=== PATIENT | female | born 1930 | race Caucasian/White ===

== ENCOUNTER 2016-09-10 12:10 | Inpatient (IN) | payer MEDICARE, OTHER ==
[~2016-09-10] VITALS: Ht 152.4 cm; Wt 64.6 kg
[~2016-09-10 12:10] MED LIST: ASPI-973 PO; LISI2.5T PO; LVF250T PO; METO25TA6 PO; PANT40TA3 PO
--- NOTE | 2016-09-10 12:10 | ED.REPORT ---
HPI-Neurologic Deficit Date of Service Sep 10, 2016 ED Provider: Rajan Virgen DO Pt is an 86 y/o female w/ a hx of HTN, [place], presenting to the ED with family via EMS due to worsening stroke-like symptoms onset 1000 today. She is not anticoagulated, she has no history of stroke. She began to notice At 1000 today , she noticed some right eye vision loss and took a nap. She woke up at 1130 and experienced a sudden-onset headache which progressed into right sided weakness and numbness causing her to fall to the ground from her chair, change in mental status. She c/o associated right eye vision loss. EMS denies aphasia, slurred speech, facial droop, any obvious pain, . Systolic BP on route 177. Daughter reports patient is normally more alert and oriented than at time of interview. She was noted to be having trouble breathing last night by her brother. She has not been taking her medications regularly which her PCP knows about. She was diagnosed with pneumonia a few months ago and placed on Cipro. She has been experiencing a cough for 1 wk. Further history unobtainable due to somnolence. Nursing Notes Stated Complaint: STROKE Nursing Notes Reviewed: Yes Allergies: Coded Allergies: No Known Allergies (Unverified Allergy, Unknown, 02/08/15) No Known Drug Allergies (Verified Allergy, Unknown, 05/06/16) Scheduled Aspirin (Aspirin) 81 Mg Tablet 81 MG PO DAILY Levofloxacin (Levaquin) 250 Mg Tablet 250 MG PO DAILYAC Lisinopril (Lisinopril) 2.5 Mg Tablet 2.5 MG PO DAILY Metoprolol Tartrate (Metoprolol Tartrate) 25 Mg Tablet 12.5 MG PO BID Scheduled PRN Pantoprazole DR (Pantoprazole DR) 40 Mg Tablet.dr 40 MG PO DAILYAC PRN PRN For Dyspepsia or Heartburn General Time Seen by Provider: 12:16 Chief Complaint Other (Right sided weakness) Hx Obtained From: Patient, Daughter, EMS Arrived By: Ambulance Sudden in Onset?: Yes Onset Occurred: 1 - 4 hours ago Symptom Duration: Since onset Progression Since Onset: Gradually worsening Severity: Current: No pain currently Severity: Maximum: No pain Similar Sx Previous: No Risk Factors TPA Administration/Criteria Stroke Thrombolytic Therapy : TPA Considered: Yes Neurologist Contacted: Yes Disc Risk/Benefit/Alternatives: Yes Consent Obtained: Guardian (daughter, PoAnette) Intensive Monitoring Performed: Yes TPA Administered Intravenously: Yes (Bolus at 1253) Complications Encountered: No Inclusion Criteria: Measurable neuro deficit, Onset < 3hr before Tx, 18 years or older NIH Stroke Scale Level of Consciousness: Not alert, arousable (1) Ask Month & Age: Both questions right (0) Open/Close Eyes/Hand Patient Portal Concierge: Performs both tasks (0) Horizontal EO Movements: None (0) 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) Facial Palsy: Normal symmetry (0) Right Arm Motor Drift (10s): No drift 10 sec (0) Left Arm Motor Drift (10s): Drift, not touch bed (1) Right Leg Motor Drift (5s): No drift 5 sec (0) Left Leg Motor Drift (5s): Drift, hits bed (2) Limb Ataxia FNF/Heel-Bedoya: Untestable (0) Sensation (Arms/Legs/Face): No sensory loss (0) Language Aphasia: Loss fluency ID matls (1) Dysarthria: Slurring intelligible (1) Extinction/Inattention: No exctinct/inattent (0) NIHSS Score: 9 Time NIHSS Performed: 12:25 Date NIHSS Performed: Sep 10, 2016 Past Medical History Past Medical History very hard of hearing arthritis CAD HTN Past Surgical History mastoid, ear surgeries cardiac stent Reports: Appendectomy, Cataract surgery, Tonsillectomy Smoking History Never Smoker Social History Alcohol Use: 1-3 per week Drug Use: Denies drug use Other Social History: Occupation livese with Ambulatory Status Walker Review of Systems Eyes: Reports: Visual loss right Respiratory: Reports: Non-productive cough Neurologic: Reports: Confusion, Focal weakness, Headache, Numbness, Problem walking, Vision change, Denies: Slurred speech, Unable to speak Complete sys rev & neg: except as marked. Physical Exam Initial Vital Signs Vital Signs (First) Date Time Temp Pulse Resp B/P Pulse Ox O2 Delivery O2 Flow Rate FiO2 09/10/16 13:09 36.0 65 16 173/94 99 Room Air 09/10/16 14:26 2 Initial VS: Reviewed, Vital signs abnormal ENT: Mucous membranes moist, Conjunctiva normal, No scleral icterus Neck: Supple, Non-tender, Full range of motion Abdomen / GI: Soft, Non-tender Extremities: Vascular intact Skin: Warm, Dry, No cyanosis General/Constitutional: Awake Alertness: Positive: Confused Hypertensive Somnolent Head / Eyes: Atraumatic, Normocephalic, PERRL Unable to differentiate light or dark in the right eye Respiratory / Chest: Atraumatic, Breath sounds NL, Breath sounds = bilat, No respiratory distress, No rales, No rhonchi, No wheezing, No retractions, No stridor, No chest tenderness, No chest wall deformity, No crepitus Cardiovascular: Heart rate NL, Regular rhythm, Heart sounds NL, No gallop, No murmurs, No rubs, Cap refill not delayed, Peripheral circulation NL Neurologic: Oriented X3 See NIH stroke scale = 9. Interpretation & Diagnostics Interpretation & Diagnostics: Head and neck CTA with brain perfusion (Post TPA): FINDINGS: Image quality: Excellent. The ventricular system and cortical sulci demonstrate atrophy, consistent for the patient's stated age. There are areas of hypoattenuation within the periventricular and subcortical white matter. There is no acute intra-or extra axial fluid collection. No acute hemorrhage, mass lesion or midline shift. Brainstem is unremarkable. Globes are symmetrical. Sinuses demonstrate overall mild pansinus mucosal thickening however more prominent in the left ethmoid air cells. Osseous structures are intact. Scattered foci of air are present within the right álvaro-orbital fat, extending posteriorly along the expected course of the supraclinoid ICA and cavernous sinus. The posterior circulation demonstrates a left vertebral artery dominance. Basilar artery and posterior cerebral arteries demonstrate no areas of hemodynamically significant stenosis, vascular occlusion or aneurysmal dilation. Posterior communicating arteries are within normal limits. The left anterior circulation, including the anterior and middle cerebral arteries, as well as internal carotid arteries demonstrates no areas of hemodynamically significant stenosis, vascular occlusion or aneurysmal dilation. The right internal carotid artery demonstrates occlusion throughout the Paul portions as well as extending into the supraclinoid region. There is complete occlusion of the right middle cerebral artery with only minimal distal atretic flow. The origins of the left common, internal and external carotid arteries demonstrate no areas of hemodynamically significant stenosis, vascular occlusion or aneurysmal dilation. There is minimal appearance of opacification in the very proximal portion of the left common carotid artery. There is no visualized opacification within the internal or external carotid artery on the right within the neck or head. Origins of the left and right vertebral arteries demonstrate no areas of hemodynamically significant stenosis, vascular occlusion or aneurysmal dilation. Aortic arch demonstrates bovine anatomy, consistent with congenital variation. Limited, visualized portions subclavian vasculature are unremarkable. IMPRESSION: 1. No acute intracranial process. 2. Moderate atrophy and chronic microvascular ischemic changes. 3. 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 In addition, there is only faint opacification of the most proximal portion of the right common carotid artery, suggesting mid/distal common carotid artery occlusion. 4. Scattered foci of air are present within the right periorbital fat and extending one portions of the supraclinoid ICA and cavernous sinus. This could be secondary to injection timing. Dictated by: Jyoti Nolan M.D. on 09/10/2016 at 14:29 Approved by: Jyoti Nolan M.D. on 09/10/2016 at 14:29 Lab Results Interpretation Result Diagram: 09/10/16 1226 09/10/16 1226 Test 09/10/16 12:26 09/10/16 12:52 White Blood Count 10.0th/mm3 (3.8-10.1) Red Blood Count 4.23mil/mm3 (3.90-5.20) Hemoglobin 12.3g/dL (12.0-15.6) Hematocrit 36.5% (35.0-46.0) Mean Corpuscular Volume 86.3fL (81-100) Mean Corpuscular Hemoglobin 29.1pg (27.0-35.0) Mean Corpuscular Hemoglobin Concent 33.7% (32.0-37.0) Red Cell Distribution Width 13.0% (12.3-15.4) Platelet Count 213bil/L (150-400) Neutrophils (%) (Auto) 77.7% (40-74) Lymphocytes (%) (Auto) 13.6% (14-46) Monocytes (%) (Auto) 6.9% (4-12) Eosinophils (%) (Auto) 1.5% (0-5) Basophils (%) (Auto) 0.1% (0-3) Prothrombin Time 10.2sec (8.1-12.5) Prothromb Time International Ratio 0.95ratio Activated Partial Thromboplast Time 26.3sec (22.8-33.0) Sodium Level 135mEq/L (134-144) Potassium Level 4.3mEq/L (3.5-5.2) Chloride Level 102mEq/L (97-108) Carbon Dioxide Level 19mmol/L (18-29) Blood Urea Nitrogen 13mg/dL (8-27) Creatinine 0.82mg/dL (0.57-1.00) Estimat Glomerular Filtration Rate 95mL/min (>59) Glucose Level 117mg/dL (60-99) Calcium Level 9.0mg/dL (8.5-10.1) Total Bilirubin 0.6mg/dL (0.0-1.2) Aspartate Amino Transf (AST/SGOT) 49U/L (0-50) Alanine Aminotransferase (ALT/SGPT) 40U/L (0-32) Alkaline Phosphatase 61U/L (25-165) Troponin T < 0.010ug/L (0.0-0.011) Total Protein 6.7g/dL (6.4-8.4) Albumin 3.6g/dL (3.4-5.0) Urine Color Straw (YELLOW) Urine Appearance Hazy (CLEAR,HAZY) Urine pH 7.5 (5.0-8.0) Urine Specific [place] 1.015 (1.003-1.035) Urine Protein Negativemg/dL (NEG,TRACE) Urine Glucose (UA) Negativemg/dL (NEGATIVE) Urine Ketones Negativemg/dL (NEGATIVE) Urine Occult Blood Negative (NEGATIVE) Urine Nitrite Negative (NEGATIVE) Urine Bilirubin Negative (NEGATIVE) Urine Urobilinogen Normalmg/dL (NORMAL) Urine Leukocyte Esterase Negative (NEGATIVE) Urine RBC 0-2/hpf (0-2) Urine WBC 0-5/hpf (0-5) Urine Epithelial Cells Occasional/hpf (NONE-MOD) Urine Crystals None seen (NONE SEEN) Urine Bacteria None/hpf (NONE-FEW) Urine Hyaline Casts None/lpf (NONE) Urine Granular Casts None seen (NONE SEEN) Urine Waxy Casts None seen (NONE SEEN) Urine Red Blood Cell Casts None seen (NONE SEEN) Urine White Blood Cell Casts None seen (NONE SEEN) Urine Mucus None seen (None Seen) Urine Trichomonas None seen (NONE SEEN) Urine Yeast None (NONE SEEN) Urinalysis Comment None Urine Culture Reflexed Not indicated Lab Results Interpretation: VB.429/35/72.3/22.6/-0.7 ECG Interpretation ECG Interpretation: Sinus rhythm rate 67 APC LAFB Time: 12:57 Interpreted by: ED physician X-Ray Chest Interpretation Chest Xray Interpretation: IMPRESSION: Moderate atypical pneumonia. Dictated by: Jordan Draper M.D. on 09/10/2016 at 13:42 Approved by: Jordan Draper M.D. on 09/10/2016 at 13:42 View: Portable, 1 view Interpretation / Wet Read by: Interpret - Radiologist CT Head Interpretation IMPRESSION: 1. No acute intracranial findings. 2. Moderate findings likely associated with microvascular ischemic changes. These findings were discussed with Dr. Samano at 12:28 PM on 09/10/16. This study fulfills neurological imaging criteria for inclusion or exclusion of acute stroke therapies based on available published neurological guidelines. Dictated by: Mckenzie Booth M.D. on 09/10/2016 at 12:28 Approved by: Mckenzie Booth M.D. on 09/10/2016 at 12:28 Study: Head CT no contrast Interpretation / Wet Read by: Interpret - Radiologist Re-Eval/Medical Decision Med Decision/Clinical Course Patient was brought to the ER with acute neurologic deficits consistent with a stroke along the left side of the body, she was taken immediately to CAT scan and subsequently brought to room 9 and required my full with immediate attention for evaluation. Initial NIH stroke scale was 9, [facility] stroke neurology was consulted the patient seemed to be without contraindication and the family was agreeable to TPA. TPA was given just inside of the three-hour window. Patient continued to have cognitive and functional decline slowly to the point where she now has a flaccid left side and is persistently sleeping, she is requiring firm sternal rub in order to wake patient. CT angiogram of the neck was obtained which shows extensive occlusion of the right carotid artery and right MCA. This was again discussed with [facility] stroke neurology who feels this patient is not a candidate for no intervention and given the rapid and progressive functional decline with neurologic deficits this patient is unlikely to return to any meaningful functional baseline status. Discussion is had with the family at this point who states that the patient would not want resuscitation or intubation and would not want life support. The family is requesting that the patient be made comfortable rather than pursue aggressive medical interventions at this time. Re-Evaluation/Progress #1: Time of Eval: 14:02 Patient Status: Condition worsened Re-Evaluation/Progress Note: Pt rechecked. According to RN, the patient's condition has been worsening throughout the stay. She is having significant trouble responding to questions. Vitals signs remain stable. Most of the NIH stroke scale at this point is untestable. Re-Evaluation/Progress #2: Time of Eval: 14:57 Re-Evaluation/Progress Note: Discussed plan for comfort care with family. They agree with plan for comfort care and admit to hospitalist service. Consultation #1: Consulted With: Neurology Call Returned at: 12:38 Note: Case discussed with [facility] stroke neurologist Dr. Weiner. Recommends TPA. Consultation #2: Consulted With: Neurology Call Returned at: 14:37 Mechanical Assembly: Agrees with eval, Agrees with plan Note: Case re-discussed with Dr. Weiner after CTA results. He believes she is not a candidate for neurointervention. Consultation #3: Referral / Consult Name: Ashley Hicks MD Consulted With: Neurology Call Returned at: 14:54 Mechanical Assembly: Agrees with eval, Agrees with plan Note: Agrees with comfort measures. Consultation #4: Referral / Consult Name: Osvaldo Poon MD Consulted With: Hospitalist Call Returned at: 16:00 Mechanical Assembly: Will see patient, Agrees with eval, Agrees with plan, Accepts admit Counseled Regarding: Diagnosis, Lab results, Need for admission Discharge & Departure Impression: Primary Impression: Carotid occlusion, right Additional Impression: CVA (cerebral vascular accident) CVA mechanism: occlusion Precerebral and cerebral artery: unspecified precerebral artery Qualified Code: I63.20 - Cerebral infarction due to unspecified occlusion or stenosis of unspecified precerebral arteries Disposition: Home Discharge Condition All VS Reviewed: Yes Condition: Stable Referrals: Thomas Guevara MD (PCP) Crit Care Except Billable Proc Time Spent: 75-104 minutes Services Performed: Patient management by me, Time spent at bedside, Reviewing test results, Reviewing imaging, Discussing patient care, Documentation in record, Time with fam/surrogate Critical Care Notes: See MDM Scribe Attestation Portions of this note were transcribed by Gold Dobson. I, Dr. Virgen personally performed the history, physical exam and medical decision-making; I reviewed and confirmed the accuracy of the information in the transcribed note. Signed by Corneilo Mckenzie, 09/10/16 - 1216 copies to: Thomas Guevara MD, Timothy S DO Sep 10, 2016 12:10 GOLD DOBSON Sep 10, 2016 12:28
[2016-09-10] MEDS ORDERED: 0.9% Sodium Chloride 1,000 ML IV ONE (12:18)
--- NOTE | 2016-09-10 12:30 | DRSVH ---
PROCEDURE: CT BRAIN (TPA) ([id number]) INDICATIONS: CVA TECHNIQUE: Noncontrast 4.5 mm thick angled axial sections acquired from the foramen magnum to the vertex, with c oronal reformats. COMPARISON: None. FINDINGS: Image quality: Excellent. CSF spaces: Basal cisterns are patent. No extra-axial fluid collections. The ventricles are symmet flavio in size and shape. Brain: No intracranial bleeds or masses. There is cerebral volume loss for age, with resultant vent ricular and sulcal prominence. There are periventricular and deep white matter chronic small vessel ischemic changes. There is intracranial internal carotid artery atherosclerosis. Skull and face: Calvarium and visualized facial bones appear intact, without suspicious lesions. Sinuses: Patient is status post right mastoidectomy. There is a left ethmoid sinus mucous retention c yst or polyp. Visualized sinuses and mastoids are clear. IMPRESSION: 1. No acute intracranial findings. 2. Moderate findings likely associated with microvascular ischemic changes. These findings were discussed with Dr. Samano at 12:28 PM on 09/10/16. This study fulfills neurological imaging criteria for inclusion or exclusion of acute stroke therapie s based on available published neurological guidelines. Dictated by: Mckenzie Booth M.D. on 09/10/2016 at 12:28 Approved by: Mckenzie Booth M.D. on 09/10/2016 at 12:28
[2016-09-10 12:34] LABS: BASOPHILS % (AUTO) 0.1 % (0-3); EOSINOPHILS % (AUTO) 1.5 % (0-5); MONOCYTES % (AUTO) 6.9 % (4-12); Mean Corpuscular Hemoglobin 29.1 pg (27.0-35.0); Mean Corpuscular Volume 86.3 fL (81-100); NEUTROPHILS % (AUTO) 77.7 % (40-74); Platelet Count 213 bil/L (150-400)
[2016-09-10 12:49] LABS: INR 0.95 ratio
--- NOTE | 2016-09-10 12:49 | ABG ---
DateTimeAnalyzed 12:43:00 -_ pH ____7.429 - pCO2 ___34.7__ -mmHg pO2 ___72.3__ -mmHg HCO3- ___22.6__ -mmol/L ABE ___-0.7__ -mmol/L tHb ___12.9__ -g/dL O2Hb ___93.4__ -% COHb ____1.0__ -% MetHb ____0.9__ -% sO2 ___95.2__ -% FIO2 ___21.0__ -% Drawn By RN - Date/Time Notified____ 12:48:00 -_ Notified By JJ - Notified Whom DR OKELLEY - B 765 -mmHg tO2 ___17.0__ -Vol% Oswald test N/A -
[2016-09-10] MEDS ORDERED: Alteplase Dose Per Pharmacist XX ONE (12:55)
[2016-09-10] MEDS ORDERED: ALTEPLASE IV ONE (13:05)
[2016-09-10] MEDS ORDERED: Alteplase (No Charge) 1 mg/mL Syringe IV ONE (13:05)
[2016-09-10 13:07] LABS: TROPONIN T < 0.010 ug/L (0.0-0.011)
[2016-09-10 13:09] VITALS: BP 173/94; PULSE 65; RESP 16; O2SAT 99
[2016-09-10 13:18] VITALS: BP 164/82; PULSE 72; RESP 19; O2SAT 94
[2016-09-10] MEDS: Ondansetron 2 mg/mL 2 mL Inj IVPUSH PRN (13:33)
--- NOTE | 2016-09-10 13:45 | DRSVH ---
PROCEDURE: X-RAY CHEST ONE VIEW, PORTABLE ([id number]) INDICATIONS: cva TECHNIQUE: One view of the chest was acquired. COMPARISON: [facility], CR, XR CHEST 2VW, 06/17/2016, 19:51. [facility], CR , CHEST 1VW (PORTABLE), 07/17/2013, 6:53. FINDINGS: Surgical changes and devices: None. Lungs and pleura: No pleural effusions or pneumothorax. Moderate patchy bilateral mid and lower lung opacity is present. Mediastinum: Mediastinal contours appear normal. Heart size is normal. Bones and chest wall: No suspicious bony lesions. Overlying soft tissues appear unremarkable. IMPRESSION: Moderate atypical pneumonia. Dictated by: Jordan Draper M.D. on 09/10/2016 at 13:42 Approved by: Jordan Draper M.D. on 09/10/2016 at 13:42
[2016-09-10 13:50] LABS: APPEARANCE,URINE HAZY (CLEAR,HAZY); COLOR,URINE STRAW (YELLOW); OCCULT BLOOD,URINE NEGATIVE (NEGATIVE); PH,URINE 7.5 (5.0-8.0); UROBILINOGEN,URINE NORMAL (NORMAL)
[2016-09-10] MEDS ORDERED: Azithromycin Inj 500 MG in Dextrose 5% w/Vial Mate 250 ML IV ONE (14:05)
[2016-09-10] MEDS ORDERED: cefTRIAXone Inj 1,000 MG in IV Premix 1 EACH IV ONE (14:05)
[2016-09-10] MEDS ORDERED: levETIRAcetam Inj 1,000 MG in IV Premix 1 EACH IV ONE (14:10)
[2016-09-10 14:15] VITALS: BP 150/68; PULSE 62; RESP 18; O2SAT 90
[2016-09-10 14:26] VITALS: BP 139/74; PULSE 60; RESP 22; O2SAT 97
--- NOTE | 2016-09-10 14:31 | DRSVH ---
PROCEDURE: CT ANGIO HEAD AND NECK (P) INDICATIONS: Stroke w/tPA - Complete WHILE tPA Infusing TECHNIQUE: Pre-contrast 4.5 mm thick sections acquired from the foramen magnum to the vertex. After the adminis tration of intravenous contrast, 1 mm thick sections acquired from the aortic arch through the [place]. Post-contrast 4.5 mm thick sections then re-acquired from the foramen magnum to the vert ex. 3-dimensional tkhjxly-ldhiuzrdh-zgvipmukyn (MIP) and/or volume rendering reformats were acquired of the central intracranial vasculature and neck separately. For radiation dose reduction, the foll owing was used: automated exposure control, adjustment of mA and/or kV according to patient size. COMPARISON: [facility], CT, BRAIN (TPA), 09/10/2016, 12:11. FINDINGS: Image quality: Excellent. The ventricular system and cortical sulci demonstrate atrophy, consistent for the patient's stated ag e. There are areas of hypoattenuation within the periventricular and subcortical white matter. There is no acute intra-or extra axial fluid collection. No acute hemorrhage, mass lesion or midline shift . Brainstem is unremarkable. Globes are symmetrical. Sinuses demonstrate overall mild pansinus mucosa l thickening however more prominent in the left ethmoid air cells. Osseous structures are intact. Sca ttered foci of air are present within the right álvaro-orbital fat, extending posteriorly along the exp ected course of the supraclinoid ICA and cavernous sinus. The posterior circulation demonstrates a left vertebral artery dominance. Basilar artery and posterio r cerebral arteries demonstrate no areas of hemodynamically significant stenosis, vascular occlusion or aneurysmal dilation. Posterior communicating arteries are within normal limits. The left anterior circulation, including the anterior and middle cerebral arteries, as well as video production intern al carotid arteries demonstrates no areas of hemodynamically significant stenosis, vascular occlusion or aneurysmal dilation. The right internal carotid artery demonstrates occlusion throughout the [place] us portions as well as extending into the supraclinoid region. There is complete occlusion of the rig ht middle cerebral artery with only minimal distal atretic flow. The origins of the left common, internal and external carotid arteries demonstrate no areas of hemody namically significant stenosis, vascular occlusion or aneurysmal dilation. There is minimal appearanc e of opacification in the very proximal portion of the left common carotid artery. There is no visual ized opacification within the internal or external carotid artery on the right within the neck or hea d. Origins of the left and right vertebral arteries demonstrate no areas of hemodynamically significa nt stenosis, vascular occlusion or aneurysmal dilation. Aortic arch demonstrates bovine anatomy, cons istent with congenital variation. Limited, visualized portions subclavian vasculature are unremarkabl e. IMPRESSION: 1. No acute intracranial process. 2. Moderate atrophy and chronic microvascular ischemic changes. 3. 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 In addition, there is only fa int opacification of the most proximal portion of the right common carotid artery, suggesting mid/dis narcisa common carotid artery occlusion. 4. Scattered foci of air are present within the right periorbital fat and extending one portions of t he supraclinoid ICA and cavernous sinus. This could be secondary to injection timing. Dictated by: Jyoti Nolan M.D. on 09/10/2016 at 14:29 Approved by: Jyoti Nolan M.D. on 09/10/2016 at 14:29
[2016-09-10 14:48] VITALS: BP 127/58; PULSE 53; RESP 23; O2SAT 97
--- NOTE | 2016-09-10 16:50 | NUR ---
Admit Pt admitted to floor via stretcher at 1630 by ED RN. Admit to be done by primary RN. IVx2 patent. On 2L NC for comfort. paged for meds. Lots of family at bedside. Questions answered.
[2016-09-10 17:33] VITALS: BP 172/79; PULSE 64; RESP 18; O2SAT 97
[2016-09-10] MEDS: HYDROmorphone 1 mg/mL Inj IVPUSH PRN (18:11)
--- NOTE | 2016-09-10 18:25 | PCM.HPMED ---
Subjective Date of Service Sep 10, 2016 Primary Provider: Admitting Physician: Osvaldo Poon MD Primary Care Physician: Thomas Guevara MD Attending Physician: Osvaldo Poon MD Chief Complaint: sudden-onset headache which progressed into right sided weakness and numbness causing her to fall to the ground from her chair History of Present Illness: Pt is an 86 y/o female w/ a hx of HTN, PA, presenting to the ED with family via EMS due to worsening stroke-like symptoms onset 1000 today. She is not anticoagulated, she has no history of stroke. She began to notice At 1000 today , she noticed some right eye vision loss and took a nap. She woke up at 1130 and experienced a sudden-onset headache which progressed into right sided weakness and numbness causing her to fall to the ground from her chair, change in mental status. She c/o associated right eye vision loss. EMS denies aphasia, slurred speech, facial droop, any obvious pain, . Systolic BP on route 177. Daughter reports patient is normally more alert and oriented than at time of interview. She was noted to be having trouble breathing last night by her brother. She has not been taking her medications regularly which her PCP knows about. Review of Systems: Unobtainable patient unconscious Family reports that the patient celebrated her 's 81th birthday just yesterday they had a good day there was nothing going on prior to that. One moment she was sitting up in the chair the next moment collapsing with the above described neurologic deficits. Gen.: No fevers chills weight loss weight gain Eyes: no visual disturbances or blurring vision HEENT: No nose/throat drainage, no pain in ears or throat, no hearing loss Lymph: No lymph nodes noted Cardiac: No chest pain, orthopnea, PND, palpitations , pedal edema or dyspnea on exertion Pulmonary: no cough, wheezing or bringing up of sputum GI: No anorexia nausea vomiting blood or black in the stool : no dysuria hematuria urinary frequency or decrease in urine output Musculoskeletal: Joint swelling no joint pain no new muscle aches or back pain Neuro: No syncope, seizures no loss of consciousness no new focal weakness, numbness or tingling Psychiatric: New new anxiety insomnia or depression Endocrine: No new heat or cold intolerances polyuria or polydipsia Hematology: No lymphadenopathy or easy bleeding or bruising noted skin: No new rashes, stasis dermatitis Allergies Coded Allergies: No Known Allergies (Unverified Allergy, Unknown, 02/08/15) No Known Drug Allergies (Verified Allergy, Unknown, 05/06/16) Home Medications Scheduled Aspirin (Aspirin) 81 Mg Tablet 81 MG PO DAILY Levofloxacin (Levaquin) 250 Mg Tablet 250 MG PO DAILYAC Lisinopril (Lisinopril) 2.5 Mg Tablet 2.5 MG PO DAILY Metoprolol Tartrate (Metoprolol Tartrate) 25 Mg Tablet 12.5 MG PO BID Scheduled PRN Pantoprazole DR (Pantoprazole DR) 40 Mg Tablet.dr 40 MG PO DAILYAC PRN PRN For Dyspepsia or Heartburn PMH very hard of hearing arthritis CAD HTN Past Surgical History mastoid, ear surgeries cardiac stent Reports: Appendectomy, Cataract surgery, Tonsillectomy Smoking History Never Smoker Social History Alcohol Use: 1-3 per week Drug Use: Denies drug use Other Social History: Occupation lives with 62yrs Ambulatory Status Walker Social History Hx Alcohol Use: Yes (occasionally) Hx Substance Use: No Hx Tobacco Use: No Smoking Status: Never Smoker Exam Vital Signs Vital Sign - Last Date Time Temp Pulse Resp B/P Pulse Ox O2 Delivery O2 Flow Rate FiO2 09/10/16 17:33 36.6 64 18 172/79 97 Nasal Cannula 2.00 Exam Gen.-Thin elderly female lying in bed eyes closed respirations regular no distress. Nonresponsive to voice minimally responsive to noxious stimuli Eyes-close, normal eyelids ENT- ears normal, nose normal Neck- trach midline CVS- RRR Lungs- normal rate nonlabored no audible rhonchi GI- flat Musc- no obvious deformity Neuro- cranial nerves II through XII intact to gross examination, nonfocal, there is definite left sided neglect and asymmetry Skin- warm and dry Psych-unconscious unarousable Lab and Diagnostics Result Diagram: 09/10/16 1226 09/10/16 1226 X-Rays, CTs and MRIs CT angio head/neck 1. No acute intracranial process. 2. Moderate atrophy and chronic microvascular ischemic changes. 3. 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 In addition, there is only faint opacification of the most proximal portion of the right common carotid artery, suggesting mid/distal common carotid artery occlusion. CXR-Moderate atypical pneumonia. CT head admit 1. No acute intracranial findings. 2. Moderate findings likely associated with microvascular ischemic changes. Assessment & Plan 86yp female presents w/ CVA, got TPA, improved then deteriorated. CT angio shows lrg R sided clot burden. Neuro consult Beninese/local "nothing to be done " Pt DNR comfort care. Family is clear She was healthy previously and would not want to continue in debilitated state. Family elected to make the patient comfort care. End of life comfort care- morphine, Ativan, glycopyrrolate ordered if they feel like feeding her they may. CVA- patient got TPA CT ANGIO showed devastating occlusion patient made comfort care. Both Beninese neurology and local neurology were reportedly consulted through the emergency room and both were in agreement that this was an end-of-life event. No further interventions could be instituted and that end -of-life care was appropriate Atypical pneumonia- per chest x-ray patient got a dose of Levaquin I am not sure what else but were not going to continue treatment. Patient is otherwise asymptomatic. Prophylaxis- DVT/GI not appropriate Disposition- patient came from home, has been made DO NOT RESUSCITATE comfort care and will likely here within the next 72 hours. Osvaldo Poon MD Sep 10, 2016 18:25
--- NOTE | 2016-09-10 19:36 | NUR ---
PT/FAMILY CARE At start of shift, RN went in to introduce self. Pt sleeping, appears comfortable, no s/sx of distress. Swing/Admitting MD in to speak w/ family. Pts daughter, Lorin, in room at bedside, no concerns or questions at this time. Call light in reach of family. Continue to monitor.
[2016-09-11] MEDS: HYDROmorphone 1 mg/mL Inj IVPUSH PRN ×4 (00:35→21:53)
--- NOTE | 2016-09-11 00:43 | NUR ---
COMFORT CARE Primary RN and INSPECTOR AIDE have asked during hourly rounding if pts family would like bright lights turned off and to have softer lights on. Family continues to refuse to have lights turned down. Pt resting comfortably until approx 0030. Pts family stated pt put hand on her face as was restless. PRN IV dilaudid and ativan administered. RN asked family to inform RN if they noticed a change in pts breathing or if breathing sounds become wet/gurgling sounding. Oral care provided. Continue to monitor. Call light in reach of family.
--- NOTE | 2016-09-11 09:21 | NUR ---
Comfort Pt began waving R arm around in air, making facial grimaces. Medicated w/ morphine and ativan IVP as requested by family. Family member in room declines research computing specialist services at this time. Hourly rounding being done.
--- NOTE | 2016-09-11 12:57 | PCM.PNMED ---
Subjective Date of Service Sep 11, 2016 Subjective pt is in comfort care, looked comfortable, daughters at the bedside Exam Vital Signs Vital Sign - Last Date Time Temp Pulse Resp B/P Pulse Ox O2 Delivery O2 Flow Rate FiO2 09/10/16 17:33 36.6 64 18 172/79 97 Nasal Cannula 2.00 Intake and Output 09/10/16 09/10/16 09/11/16 Cumulative From/Thru 15:00 23:00 07:00 09/10/16 13:09 - 09/10/16 18:56 Intake Total 1000 ml 0 ml 1000 ml Output Total 1675 ml 1675 ml Balance 1000 ml -1675 ml -675 ml Intake Oral 0 ml 0 ml IV Total 1000 ml 1000 ml Output Urine Total 1675 ml 1675 ml # Bowel Movements 0 0 Exam NAD, comfortably laying down on the bed pinpoint pupils, sluggish response, closed eyes, not responsive no JVD, MMM, no LAD RRR, nl s1, s2 no mrg CTAB, no w,c anteriorly S,ND,NT,normoactive BS+ warm, no edema, pulses 2/2 IVs and Medications Medications Reviewed: Medications were reviewed in detail Lab and Diagnostics Result Diagram: 09/10/16 1226 09/10/16 1226 X-Rays, CTs and MRIs CT angio head/neck 1. No acute intracranial process. 2. Moderate atrophy and chronic microvascular ischemic changes. 3. 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 In addition, there is only faint opacification of the most proximal portion of the right common carotid artery, suggesting mid/distal common carotid artery occlusion. CXR-Moderate atypical pneumonia. CT head admit 1. No acute intracranial findings. 2. Moderate findings likely associated with microvascular ischemic changes. Assessment & Plan 86yp female presents w/ CVA, got TPA, improved then deteriorated. CT angio shows lrg R sided clot burden. Neuro consult [place] Timorese/local "nothing to be done " Pt DNR comfort care. Family is clear She was healthy previously and would not want to continue in debilitated state. Family elected to make the patient comfort care. -continue comfort care aiming to decrease pain with dialudid 1mg q1h prn -no blood draws, BP monitoring, telemetry, fingersticks Disposition- patient came from home, has been made DO NOT RESUSCITATE comfort care and will likely here, if pt remains table until tomorrow, will arrange inpatient hospice, appreciate SW input. Time spent 35min Jonatan Pena MD Sep 11, 2016 12:49
--- NOTE | 2016-09-11 14:56 | NUR ---
Social Work-initial assessment: Data:See initial assessment. Pt is a 86 y/o female who was admitted on 09/10/16 for comfort measures per H&P Pt's insurance is [employer] and PCP is Thomas Guevara MD. EMR reviewed. ARACELI met with pt, , and daughter Lorin to discuss discharge planning, ARACELI role explained. Pt resides at home with her where she remains independent with ADLs. Pt uses no DME at home and has an elevator in the house. Pt drives and has no HH/SNF history. DPOA/advanced directive paperwork on file, ARACELI confirmed information with pt/family and placed on the chart. At this time, pt is comfort care, requesting information about his home. ARACELI provided him with phone number. MD would like to watch pt one more day and then if she is stable then may need to transfer out of the hospital for comfort care. ARACELI SW to follow up with pt and family tomorrow. Assessment:Pt who is on comfort care. plan:MD to watch pt for 24 hours and determine status. If pt is stable tomorrow, then placement may need to be looked for. ARACELI will continue to follow. ADRIENNE Jackson Addendum: 09/11/16 at 1501 by ABDIEL ECKERT Amended: Links added.
--- NOTE | 2016-09-11 19:53 | NUR ---
comfort care medicated x 1 with ativan 1 mg and dilaudid 11 mg ivp for restlessness, has remained quiet with even respirations remaind of shift. family supportive at bedside.
[2016-09-11 20:56] VITALS: PULSE 60; RESP 22
[2016-09-11 22:06] VITALS: PULSE 88; RESP 18
[2016-09-12 00:32] VITALS: PULSE 92; RESP 24
[2016-09-12 02:10] VITALS: RESP 22
[2016-09-12] MEDS: HYDROmorphone 1 mg/mL Inj IVPUSH PRN ×5 (03:13→20:44)
[2016-09-12 03:55] VITALS: PULSE 112; RESP 24
[2016-09-12 05:17] VITALS: PULSE 100; RESP 24
--- NOTE | 2016-09-12 06:42 | NUR ---
Comfort care Pt remains unresponsive to voice, move mouth when doing oral care occasionally. Appears mild agitation sometimes with moving right arm, Dilaudid and Ativan givenx2 as needed. Pt calm down subsequently. RR 18-22,up to 24, HR 60,up to 112 when fever 37.9, no s/s acute respiratory distress. Cold wash cloth applied on forehead, one layer of blanket removed, T down to 37.5. Cough occasionally, unable to cough up sputum, oral suction prn,thick yellow mucus by suction. Med given to reduce secretion. Oral care performed. Daughter stay with pt overnight, refuses q2h turn, reposition per family permit.
--- NOTE | 2016-09-12 12:54 | PCM.PNMED ---
Subjective Date of Service Sep 12, 2016 Subjective pt had fever, looked comfortable Exam Vital Signs Vital Sign - Last Date Time Temp Pulse Resp B/P Pulse Ox O2 Delivery O2 Flow Rate FiO2 09/12/16 05:53 Supplement Oxygen 09/12/16 05:17 100 24 2.00 09/12/16 05:14 37.5 09/10/16 17:33 172/79 97 Intake and Output 09/11/16 09/11/16 09/12/16 Cumulative From/Thru 15:00 23:00 07:00 09/10/16 13:09 - 09/11/16 18:28 Intake Total 0 ml 1000 ml Output Total 400 ml 2075 ml Balance -400 ml -1075 ml Intake Oral 0 ml 0 ml IV Total 1000 ml Output Urine Total 400 ml 2075 ml # Bowel Movements 0 0 Exam NAD, comfortably laying down on the bed pinpoint pupils, sluggish response, closed eyes, not responsive no JVD, MMM, no LAD RRR, nl s1, s2 no mrg CTAB, no w,c anteriorly S,ND,NT,normoactive BS+ warm, no edema, pulses 2/2 IVs and Medications Medications Reviewed: Medications were reviewed in detail Lab and Diagnostics Result Diagram: 09/10/16 1226 09/10/16 1226 X-Rays, CTs and MRIs CT angio head/neck 1. No acute intracranial process. 2. Moderate atrophy and chronic microvascular ischemic changes. 3. 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 In addition, there is only faint opacification of the most proximal portion of the right common carotid artery, suggesting mid/distal common carotid artery occlusion. CXR-Moderate atypical pneumonia. CT head admit 1. No acute intracranial findings. 2. Moderate findings likely associated with microvascular ischemic changes. Assessment & Plan 86yp female presents w/ CVA, got TPA, improved then deteriorated. CT angio shows lrg R sided clot burden. Neuro consult Maltese/local "nothing to be done " Pt DNR comfort care. Family is clear She was healthy previously and would not want to continue in debilitated state. Family elected to make the patient comfort care. -continue comfort care aiming to decrease pain with dialudid 1mg q1h prn -no blood draws, BP monitoring, telemetry, fingersticks Disposition- patient came from home, has been made DO NOT RESUSCITATE comfort care and will likely here, Family-daughters prefer to keep patient here, however, given stable condition, expect to d/c to SNF/inpatient hospice, appreciate SW/CM input Time spent 35min Jonatan Pena MD Sep 12, 2016 12:53
--- NOTE | 2016-09-12 16:08 | NUR ---
Social Work: Continued d/c planning Data: Pt is on day 2 of hospitalization. EMR reviewed, pt discussed in rounds. states that pt's family is requesting that pt remain in hospital until she passes but that he suspects she will live for longer than 48 hours. SOFTWARE QUALITY ENGINEER met with pt's son, , and daughter, and gave them the SNF choice list. They are apprehensive of pt going to SNF, SOFTWARE QUALITY ENGINEER presented it as a possibility and that they should expect to have their top two choices ready by 09/13/16 and SOFTWARE QUALITY ENGINEER will refer pt and then more decisions can be made. SOFTWARE QUALITY ENGINEER will meet with family on 09/13/16 around 9AM. SOFTWARE QUALITY ENGINEER will continue to follow. Assessment: Pt who is on comfort care. Plan: Pt will either pass at hospital or go to SNF. SOFTWARE QUALITY ENGINEER will meet with family on 09/13/16 around 9AM. SOFTWARE QUALITY ENGINEER will continue to follow. ADRIENNE Anderson
--- NOTE | 2016-09-12 18:11 | NUR ---
Comfort measures Family at bedside, lights dim and music playing. Pt will move R arm and shift legs with increased respiratory rate when uncomfortable. IV Dilaudid, lorazepam given, pt calms, respiratory rate decreases to 16, with gentle snoring. Able to rest comfortably following administration. Family has declined repositioning of pt through out shift. Frequent rounding in place, will continue to monitor.
[2016-09-13] MEDS: HYDROmorphone 1 mg/mL Inj IVPUSH PRN ×3 (00:15→10:34)
--- NOTE | 2016-09-13 11:01 | NUR ---
Social Work: Continued d/c planning Data: Pt is on day 3 of hospitalization. EMR reviewed. OUTPATIENT SCHEDULER met with pt's daughter with MD who explained that pt will likely live longer than 2 days at this point. Pt's daughter states she believes that she might not and that she wants her to stay at the hospital until she passes. OUTPATIENT SCHEDULER requested pt's daughter and spouse choose 2-3 SNF's to send referrals to so that options are open if she remains strong through the day today and that she may d/c to one of the locations if she is stable for transport at that time. Pt's daughter states that she is agreeable to sending referrals to [facility], [facility], and [facility] UR specialist referring pt to those locations. OUTPATIENT SCHEDULER will continue to follow. Assessment: Pt who is independent at baseline. Plan: Pt will either pass at hospital or go to SNF if remains stable through the day. Pt referred to [facility], [facility], and [facility]. OUTPATIENT SCHEDULER will continue to follow. ADRIENNE Anderson
--- NOTE | 2016-09-13 11:25 | NUR ---
Gave access and referral to Karthik Lo and [facility] per PRODUCTION SUPPORT SPECIALIST
--- NOTE | 2016-09-13 12:22 | NUR ---
Palliative care note D/A: Request for palliative care consult kindly received today from Dr. Pena. This worker first approached by RN who requests info on Hospice. Brochure/info given as well as discussion on asking for Hospice info visit from [facility]. Family expressing desire to consider home with Hospice. RN notes that pt is on IV medications at this time. Recommend possible PC referral for assistance with transition to hospice medications. RN discusses with Dr. Pena who agrees to PC consult. Phone call to Jeanette at [facility] to inquire about info visit. She is able to arrange for one for today at 1400. Met with family to explain who note that they can attend this meeting. Later provide with information regarding palliative care services. Case discussed with Dr. Diaz who will consult. P: Palliative care to follow. Cathi MCQUEENSW, [facility] Addendum: 09/13/16 at 1257 by ABDIEL PAYTON PC note amendment D/A: Dr.. Diaz has evaluated pt and finds her to be at eol. She is experiencing significant apneic periods as well as [place] breathing patterns. He feels she will pass away within approx 24 hours. He will start her on comfort path in acute care and expects her to while at [facility]. He asks that this worker cancel [facility] info visit. Msg left for Jeanette at [facility] to cancel info vist as well as corporate controller phone for Yuly from [facility] to cancel visit. Have also left message for Angely DELEON as to above. Dr. Diaz has informed family that [facility] info visit has been cancelled and that he expects pt to approx in about a day. Cathi ADRIAN, CCM
[2016-09-13] MEDS ORDERED: Ondansetron 2 mg/mL 2 mL Inj IVPUSH PRN (12:50)
[2016-09-13] MEDS ORDERED: LORazepam 100 mg/100 mL NS 100 MG in IV Premix 1 EACH IV PRN (12:50)
[2016-09-13] MEDS ORDERED: Artificial Tears 15 mL Ophthalmic Solution AFFECT_EYE PRN (12:50)
[2016-09-13] MEDS ORDERED: Morphine 100 mg/100 mL NS 100 MG in IV Premix 1 EACH IV SCH (12:50)
--- NOTE | 2016-09-13 13:24 | PCM.CONPAL ---
Date of Service Sep 13, 2016 Date of Hospital Admission: Sep 10, 2016 at 16:09 Date of Palliative Consult: Sep 13, 2016 Requesting Provider: Jonatan Pena MD Reason Palliative Care Consult: Other (end-of-life care) Hospital Unit @time of consult: Medical/Pediatric Care Palliative Care Recommendation 86-year-old female admitted with diagnosis of CVA. Unconscious/unresponsive and per family wishes, comfort/end-of-life care Palliative medicine consulted to assist with management and evaluate possible disposition options with the assistance of case management and patient's family. At this time, patient appears to be actively dying and it is therefore appropriate to provide end-of-life care here in hospital. Summary of palliative recommendations: -Symptom management (Pain/other)- initiated end-of-life care protocol. Morphine drip and other medications as needed for comfort. Anticipate she will here in the hospital in the next 24 hours.Plans reviewed with family; updated hospitalist and will update CM when available. 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 Advanced Care Planning Address: Comfort care Pain: None Pt History History of Present Illness Per admission H&P: Pt is an 86 y/o female w/ a hx of HTN, [place], presenting to the ED with family via EMS due to worsening stroke-like symptoms onset 1000 today. She is not anticoagulated, she has no history of stroke. She began to notice At 1000 today , she noticed some right eye vision loss and took a nap. She woke up at 1130 and experienced a sudden-onset headache which progressed into right sided weakness and numbness causing her to fall to the ground from her chair, change in mental status. She c/o associated right eye vision loss. EMS denies aphasia, slurred speech, facial droop, any obvious pain, . Systolic BP on route 177. Daughter reports patient is normally more alert and oriented than at time of interview. She was noted to be having trouble breathing last night by her brother. She has not been taking her medications regularly which her PCP knows about. Evaluation revealed occlusion of the right carotid arterial tree with clinical evidence of large right CVA. Received TPA with transient benefit and then deterioration. Neurologic consultants at [facility] noted that there were no other options for treatments available. Patient's family, consistent with her previously known and stated wishes, requested transition to comfort care. Prior to visiting patient and family, I reviewed her records in the EMR in detail, spoke with DIRECTOR OF CODING and her bedside nurse. On my arrival, multiple family members including her and daughter Lorin (POA) at bedside. Spoke with them and reviewed their interpretation and understanding of events and their wishes for care. Past Medical History Significant PMH Noted: Hard of hearing DJD CAD HTN Past Surgical History Mastoid, ear surgeries Cardiac stent Appendectomy, Cataract surgery, Tonsillectomy Social History Occupation: Retired, lives with Family Members Issues: Family wants patient to be allowed to pass away peacefully Social Support: Excellent with multiple family members at bedside Palliative Performance Scale PPS Patient Status: Baseline PPS Ambulation: Reduced PPS Activity: Normal activity & work PPS Self-Care: Full Self Care PPS Intake: Normal PPS Conscious Level: Full Performance Scale: 80% ADLs ADL Patient Status: Baseline ADL Ambulation: Reduced ADL Dressing: Full ADL Feeding: Full ADL Hygene/bathing: Full ADL Transfers: Full Allergy Allergies Reviewed: Yes Medications Current Medications: Current Medications Scopolamine 1.5 mg Q3D TOPICAL; Start 09/13/16 at 11:05 Morphine Sulfate 2 mg Q1H PRN IVPUSH; Start 09/13/16 at 12:50 Lorazepam 1 mg 1 mg Q1H PRN IVPUSH; Start 09/13/16 at 12:50 Lorazepam/Sodium Chloride/Premix 100 ml @ 0 mls/hr Q0M PRN IV; Start 09/13/16 at 12:50 Ondansetron HCl Start with 4 mg, if ... Q4H PRN IVPUSH; Start 09/13/16 at 12:50 Atropine Sulfate Start with 2 drops, if ... Q1H PRN PO; Start 09/13/16 at 12:50 Artificial Tears 1 drop Q1H PRN AFFECT_EYE; Start 09/13/16 at 12:50 Scheduled Aspirin (Aspirin) 81 Mg Tablet 81 MG PO DAILY Lisinopril (Lisinopril) 2.5 Mg Tablet 2.5 MG PO DAILY Metoprolol Tartrate (Metoprolol Tartrate) 25 Mg Tablet 12.5 MG PO BID Scheduled PRN Pantoprazole DR (Pantoprazole DR) 40 Mg Tablet.dr 40 MG PO DAILYAC PRN PRN For Dyspepsia or Heartburn Objective Findings Exam Vital Sign - Last Date Time Temp Pulse Resp B/P Pulse Ox O2 Delivery O2 Flow Rate FiO2 09/13/16 05:00 Supplement Oxygen 09/12/16 05:17 100 24 2.00 09/12/16 05:14 37.5 09/10/16 17:33 172/79 97 Intake and Output 09/12/16 09/12/16 09/13/16 Cumulative From/Thru 14:59 22:59 06:59 09/10/16 13:09 - 09/12/16 18:12 Intake Total 0 ml 0 ml 1000 ml Output Total 225 ml 200 ml 2500 ml Balance -225 ml -200 ml -1500 ml Intake Oral 0 ml 0 ml 0 ml IV Total 1000 ml Output Urine Total 225 ml 200 ml 2500 ml # Bowel Movements 0 0 0 Objective Elderly woman lying in bed, unresponsive. Marked Kurt-Graves respirations with apnea greater than 20 seconds. Other vital signs noted. Skin is pale, warm and dry. Patient is not responsive to verbal or noxious stimulation. Lungs clear anteriorly, heart sounds irregular, abdomen soft and without apparent peritoneal signs. Extremities flaccid. Lab/Diagnostics Lab and Imaging results reviewed in detail in EMR. Patient/Family Conference Discussion/Goals of Care Spoke with her daughter Lorin who is POA. Lorin and family have been talking with hospitalist and discharge planning, considering options. Family felt strongly that they wished to minimize discomfort/distress to the patient and her that would arise out of expedited discharge to home or SNF. I talked with Lorin about options for disposition such as end-of-life care here (and, given the patient's present status, I anticipate she will likely within the next 24 hours) versus home care provided by Lorin and other family, versus home care with hospice versus SNF with comfort care. Given that the patient will likely within 24 hours, agreed to initiate end-of-life care protocol here. Family is relieved with this plan. Time spent Total time 70 minutes; >50% face to face with patient and family, providing counselling regarding plans and recommendations, and in care coordination with her medical teams. Of the above total time, 30 minutes counseling for advanced care planning with the patients family Thomas Diaz MD Sep 13, 2016 13:23
--- NOTE | 2016-09-13 13:51 | PCM.PNMED ---
Subjective Date of Service Sep 13, 2016 Subjective pt looks more lethargic, bradypneic palliative care consulted, family agreed on the plan Exam Vital Signs Vital Sign - Last Date Time Temp Pulse Resp B/P Pulse Ox O2 Delivery O2 Flow Rate FiO2 09/13/16 05:00 Supplement Oxygen 09/12/16 05:17 100 24 2.00 09/12/16 05:14 37.5 09/10/16 17:33 172/79 97 Intake and Output 09/12/16 09/12/16 09/13/16 Cumulative From/Thru 15:00 23:00 07:00 09/10/16 13:09 - 09/12/16 18:12 Intake Total 0 ml 0 ml 1000 ml Output Total 225 ml 200 ml 2500 ml Balance -225 ml -200 ml -1500 ml Intake Oral 0 ml 0 ml 0 ml IV Total 1000 ml Output Urine Total 225 ml 200 ml 2500 ml # Bowel Movements 0 0 0 Exam NAD, comfortably laying down on the bed pinpoint pupils, sluggish response, closed eyes, not responsive RRR, nl s1, s2 no mrg coarseBS IVs and Medications Medications Reviewed: Medications were reviewed in detail Lab and Diagnostics Result Diagram: 09/10/16 1226 09/10/16 1226 X-Rays, CTs and MRIs CT angio head/neck 1. No acute intracranial process. 2. Moderate atrophy and chronic microvascular ischemic changes. 3. 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 In addition, there is only faint opacification of the most proximal portion of the right common carotid artery, suggesting mid/distal common carotid artery occlusion. CXR-Moderate atypical pneumonia. CT head admit 1. No acute intracranial findings. 2. Moderate findings likely associated with microvascular ischemic changes. Assessment & Plan 86yp female presents w/ CVA, got TPA, improved then deteriorated. CT angio shows lrg R sided clot burden. Neuro consult Croatian/local "nothing to be done " Pt DNR comfort care. Family is clear She was healthy previously and would not want to continue in debilitated state. Family elected to make the patient comfort care. -No blood draws, BP monitoring, telemetry, fingersticks -medicine for comfort care, ativan, glycopyrrolate, atropine, zofran, morphine per Palliative care Disposition- expected to within 24hrs in house, greatly appreciate palliative care recommendation Resuscitation Status: DNR/DNI:Do Not Resuscitate/Intubate Time spent 35min Jonatan Pena MD Sep 13, 2016 13:51
[2016-09-13] MEDS ORDERED: 0.9% Sodium Chloride 250 ML ONE (14:49)
--- NOTE | 2016-09-13 14:56 | NUR ---
[facility] and they have a private room available now. Will page MD and see how soon we do orders. [facility] can accept patient with to follow. Spoke with lGo and she is working on clearing a room for this patient. Patient likely to discharge tonight. Updated WARDROBE SPECIALIST and WARDROBE SPECIALIST [employer]
--- NOTE | 2016-09-13 14:57 | NUR ---
IV morphine IV morphine hung at 1450, verified with bellows charger assembler Brooke. Pt tolerating it well. Education provided to family. Will continue to monitor.
--- NOTE | 2016-09-13 16:17 | NUR ---
Social Work D/A: Team meeting with Palliative care with an update in patients condition discussed. At this time it appears the patient will pass in the next 24 hours. The patient will remain in the hospital vs. transfer to a SNF, though one has accepted. PLAN: Pt expected to pass in the next 24 hours. NGUYỄN Schroeder
[2016-09-13] MEDS: Atropine 1% 5 mL Ophthalmic Solution PO PRN ×2 (16:57→23:03)
--- NOTE | 2016-09-14 08:40 | NUR ---
TRACY signed Pt's son signed tracy. ADRIENNE Anderson
--- NOTE | 2016-09-14 10:53 | NUR ---
Comfort Care: Patient resting w/eyes closed. HR 100, RR 28. Secretions audible. Daughter W bedside. Discussed repositioning and oral care with daughter. Will perform upon request. Addendum: 09/14/16 at 1118 by PATY STORY RN Morphine 1mg bolus administered, Atropine and Robinul administered for secretions. Addendum: 09/14/16 at 1713 by PATY STORY RN Patient resting quietly w/eyes closed. RR 12, HR 86. Family at bedside.
--- NOTE | 2016-09-14 11:06 | PCM.PALLBR ---
Palliative Brief Note Date of Service Sep 14, 2016 . Returned to see patient and talk with her daughter Lorin at bedside. Reviewed overnight changes with her bedside nurse as well. Patient has appeared comfortable through the night and has remained unconscious. Talk with Lorin about discontinuing oxygen- she was comfortable with that and I have turned off oxygen at this time. With removal of her nasal cannula, patient was slightly restless, and I spoke with her nurse about giving a bolus of morphine and increasing the drip rate as needed if there is any sign of restlessness or distress. Reviewed other medications for comfort as well. Will continue with comfort/end-of-life care and I expect she will pass away today. Thomas Diaz MD Sep 14, 2016 11:06
[2016-09-14] MEDS: Atropine 1% 5 mL Ophthalmic Solution PO PRN ×2 (11:12→13:23)
--- NOTE | 2016-09-14 12:43 | PCM.PNMED ---
Subjective Date of Service Sep 14, 2016 Subjective pt looked comfortable, family at the bedside Exam Vital Signs Vital Sign - Last Date Time Temp Pulse Resp B/P Pulse Ox O2 Delivery O2 Flow Rate FiO2 09/13/16 05:00 Supplement Oxygen 09/12/16 05:17 100 24 2.00 09/12/16 05:14 37.5 09/10/16 17:33 172/79 97 Intake and Output 09/13/16 09/13/16 09/14/16 Cumulative From/Thru 15:00 23:00 07:00 09/10/16 13:09 - 09/13/16 18:23 Intake Total 0 ml 0 ml 1000 ml Output Total 200 ml 250 ml 2950 ml Balance -200 ml -250 ml -1950 ml Intake Oral 0 ml 0 ml 0 ml IV Total 1000 ml Output Urine Total 200 ml 250 ml 2950 ml # Bowel Movements 0 0 0 Exam NAD, comfortably laying down on the bed pinpoint pupils, sluggish response, closed eyes, not responsive RRR, nl s1, s2 no mrg coarseBS IVs and Medications Medications Reviewed: Medications were reviewed in detail Lab and Diagnostics Result Diagram: 09/10/16 1226 09/10/16 1226 X-Rays, CTs and MRIs CT angio head/neck 1. No acute intracranial process. 2. Moderate atrophy and chronic microvascular ischemic changes. 3. 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 In addition, there is only faint opacification of the most proximal portion of the right common carotid artery, suggesting mid/distal common carotid artery occlusion. CXR-Moderate atypical pneumonia. CT head admit 1. No acute intracranial findings. 2. Moderate findings likely associated with microvascular ischemic changes. Assessment & Plan 86yp female presents w/ CVA, got TPA, improved then deteriorated. CT angio shows lrg R sided clot burden. Neuro consult Nigerian/local "nothing to be done " Pt DNR comfort care. Family is clear She was healthy previously and would not want to continue in debilitated state. Family elected to make the patient comfort care. -No blood draws, BP monitoring, telemetry, fingersticks -medicine for comfort care, ativan, glycopyrrolate, atropine, zofran, morphine per Palliative care Disposition- expected to within 24hrs in house, greatly appreciate palliative care recommendation Resuscitation Status: DNR/DNI:Do Not Resuscitate/Intubate Time spent 35min Jonatan Pena MD Sep 14, 2016 12:43
--- NOTE | 2016-09-14 16:36 | NUR ---
Social Work: Continued d/c planning Data: Pt is on day 4 of hospitalization. Palliative team anticipated pt will likely pass within the next 24 hours. Referrals are still out to [facility] (accepted), [facility] (unsure of status), and [facility] (accepted). If pt unexpectedly improves, she could transfer to a SNF if stable for transport. Pt's family also spoke with palliative team about hospice, and this would be another option if pt unexpectedly improves. CHIEF OF INTERNAL MEDICINE will continue to follow. Assessment: Pt on Comfort Care. Plan: Pt expected to pass at hospital within 24 hours. If pt unexpectedly improves and is stable for d/c, she could d/c to SNF or home with hospice. CHIEF OF INTERNAL MEDICINE will continue to follow. ADRIENNE Anderson
--- NOTE | 2016-09-15 05:59 | NUR ---
Comfort Care Update Noc Shift Morphine now titrated upto 2.5mg/hr. Ativan and Morphine bolus' given as needed. Atropine drops used x3. Respirations have changed to more "croaky" sounding. Mottling of L foot. Pt appears relaxed and comfortable. Eldest daughter at bedside all night.
[2016-09-15] MEDS: Atropine 1% 5 mL Ophthalmic Solution PO PRN (09:14)
--- NOTE | 2016-09-15 10:18 | NUR ---
Social Work: Brief Note. TRAVEL FREIGHT AND PASSENGER AGENT notified by nursing staff that pt has passes away at the hospital. No further TRAVEL FREIGHT AND PASSENGER AGENT needs. ADRIENNE Anderson
--- NOTE | 2016-09-15 12:50 | NUR ---
: Patient absent of HR and RR. Listened for heartbeat for approx 1 min, confirmed absence of heartbeat @ 0940 w/Noa Desouza RN. Family present. Personal belongings sent home with patient. Organ donation line called. All departments, MD, and PCP notified as per release of body form. Post mortem care performed. Wasted remaining 10mls of Morphine infusion w/Jo-Ann Rodriguez RN. Addendum: 09/15/16 at 1320 by MARGARET STORY RN home called @ approx 1300. Addendum: 09/15/16 at 1840 by JO-ANN RODRIGUEZ RN I witnessed morphine waste with Margaret Olguin
--- NOTE | 2016-09-29 13:52 | PCM.DC.MEX ---
Discharge Summary Date of Service Sep 15, 2016 Dates of Hospitalization Date of Hospital Admission Sep 10, 2016 at 16:09 Date of Expiration: Sep 15, 2016 Time of Expiration: 09:40 Providers: Admitting Physician: Osvaldo Poon MD Primary Care Physician: Thomas Guevara MD Attending Physician: Osvaldo Poon MD Diagnosis at Time of Massive stroke Respiratory arrest on comfort care Consultations Palliative care Procedures XRay, CTs & MRIs CT angio head/neck 1. No acute intracranial process. 2. Moderate atrophy and chronic microvascular ischemic changes. 3. 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 In addition, there is only faint opacification of the most proximal portion of the right common carotid artery, suggesting mid/distal common carotid artery occlusion. CXR-Moderate atypical pneumonia. CT head admit 1. No acute intracranial findings. 2. Moderate findings likely associated with microvascular ischemic changes. Brief History Per admission H&P: Pt is an 86 y/o female w/ a hx of HTN, [place], presenting to the ED with family via EMS due to worsening stroke-like symptoms onset 1000 today. She is not anticoagulated, she has no history of stroke. She began to notice At 1000 today , she noticed some right eye vision loss and took a nap. She woke up at 1130 and experienced a sudden-onset headache which progressed into right sided weakness and numbness causing her to fall to the ground from her chair, change in mental status. She c/o associated right eye vision loss. EMS denies aphasia, slurred speech, facial droop, any obvious pain, . Systolic BP on route 177. Daughter reports patient is normally more alert and oriented than at time of interview. She was noted to be having trouble breathing last night by her brother. She has not been taking her medications regularly which her PCP knows about. Evaluation revealed occlusion of the right carotid arterial tree with clinical evidence of large right CVA. Received TPA with transient benefit and then deterioration. Neurologic consultants at [facility] noted that there were no other options for treatments available. Patient's family, consistent with her previously known and stated wishes, requested transition to comfort care. Prior to visiting patient and family, I reviewed her records in the EMR in detail, spoke with ADRIENNE and her bedside nurse. On my arrival, multiple family members including her and daughter Lorin (POAnette) at bedside. Spoke with them and reviewed their interpretation and understanding of events and their wishes for care. Hospital Course 86yp female presents w/ CVA, got TPA, improved then deteriorated. CT angio shows lrg R sided clot burden. Neuro consult [facility]/local "nothing to be done " Family elected to make the patient comfort care. Patient was consulted with palliative care, started with ativan, glycopyrrolate, atropine, zofran, morphine. Patient comfortably on 09/15 with family at the bedside Exam Test 09/10/16 12:26 09/10/16 12:52 White Blood Count 10.0th/mm3 (3.8-10.1) Red Blood Count 4.23mil/mm3 (3.90-5.20) Hemoglobin 12.3g/dL (12.0-15.6) Hematocrit 36.5% (35.0-46.0) Mean Corpuscular Volume 86.3fL (81-100) Mean Corpuscular Hemoglobin 29.1pg (27.0-35.0) Mean Corpuscular Hemoglobin Concent 33.7% (32.0-37.0) Red Cell Distribution Width 13.0% (12.3-15.4) Platelet Count 213bil/L (150-400) Neutrophils (%) (Auto) 77.7% (40-74) Lymphocytes (%) (Auto) 13.6% (14-46) Monocytes (%) (Auto) 6.9% (4-12) Eosinophils (%) (Auto) 1.5% (0-5) Basophils (%) (Auto) 0.1% (0-3) Prothrombin Time 10.2sec (8.1-12.5) Prothromb Time International Ratio 0.95ratio Activated Partial Thromboplast Time 26.3sec (22.8-33.0) Sodium Level 135mEq/L (134-144) Potassium Level 4.3mEq/L (3.5-5.2) Chloride Level 102mEq/L (97-108) Carbon Dioxide Level 19mmol/L (18-29) Blood Urea Nitrogen 13mg/dL (8-27) Creatinine 0.82mg/dL (0.57-1.00) Estimat Glomerular Filtration Rate 95mL/min (>59) Glucose Level 117mg/dL (60-99) Calcium Level 9.0mg/dL (8.5-10.1) Total Bilirubin 0.6mg/dL (0.0-1.2) Aspartate Amino Transf (AST/SGOT) 49U/L (0-50) Alanine Aminotransferase (ALT/SGPT) 40U/L (0-32) Alkaline Phosphatase 61U/L (25-165) Troponin T < 0.010ug/L (0.0-0.011) Total Protein 6.7g/dL (6.4-8.4) Albumin 3.6g/dL (3.4-5.0) Urine Color Straw (YELLOW) Urine Appearance Hazy (CLEAR,HAZY) Urine pH 7.5 (5.0-8.0) Urine Specific [place] 1.015 (1.003-1.035) Urine Protein Negativemg/dL (NEG,TRACE) Urine Glucose (UA) Negativemg/dL (NEGATIVE) Urine Ketones Negativemg/dL (NEGATIVE) Urine Occult Blood Negative (NEGATIVE) Urine Nitrite Negative (NEGATIVE) Urine Bilirubin Negative (NEGATIVE) Urine Urobilinogen Normalmg/dL (NORMAL) Urine Leukocyte Esterase Negative (NEGATIVE) Urine RBC 0-2/hpf (0-2) Urine WBC 0-5/hpf (0-5) Urine Epithelial Cells Occasional/hpf (NONE-MOD) Urine Crystals None seen (NONE SEEN) Urine Bacteria None/hpf (NONE-FEW) Urine Hyaline Casts None/lpf (NONE) Urine Granular Casts None seen (NONE SEEN) Urine Waxy Casts None seen (NONE SEEN) Urine Red Blood Cell Casts None seen (NONE SEEN) Urine White Blood Cell Casts None seen (NONE SEEN) Urine Mucus None seen (None Seen) Urine Trichomonas None seen (NONE SEEN) Urine Yeast None (NONE SEEN) Urinalysis Comment None Urine Culture Reflexed Not indicated Time spent 35min Jonatan Pena MD Sep 29, 2016 13:52
== END 2016-09-15 09:40 | disposition expired | DRG 61 ==
LOC: SED 12:10 → MPC 16:09
PROVIDERS: ADMIT Hospitalist; ATTEND Hospitalist
DX: I63.131 Cerebral infarction due to embolism of right carotid artery (principal); J18.9 Pneumonia, unspecified organism; G81.91 Hemiplegia, unspecified affecting right dominant side; I66.01 Occlusion and stenosis of right middle cerebral artery; H54.61 Unqualified visual loss, right eye, normal vision left eye; I25.10 Atherosclerotic heart disease of native coronary artery without angina pectoris; I10 Essential (primary) hypertension; R29.709 NIHSS score 9; I25.2 Old myocardial infarction; Z66 Do not resuscitate; Z51.5 Encounter for palliative care; Z79.82 Long term (current) use of aspirin; Z95.5 Presence of coronary angioplasty implant and graft